=== PATIENT | female | born 1990 | race Caucasian/White ===

== ENCOUNTER 2019-01-19 12:38 | Emergency (ER) | payer OTHER ==
[~2019-01-19] VITALS: Ht 162.6 cm; Wt 80.0 kg
[2019-01-19 12:44] VITALS: BP 112/80; PULSE 78; RESP 16; Ht 162.6 cm; Wt 80.0 kg
[2019-01-19] MEDS ORDERED: NPH10OT RIGHT EAR (13:22)
--- NOTE | 2019-01-19 15:20 | ERD ---
ER Documentation Chief Complaint Chief Complaint RT EAR PAIN X 2 DAYS HPI Patient is a 28-year-old female with no medical problems who presents with right-sided ear pain. She says "I feel a buzzing in my right ear". She said that it started last night. She thinks that she might have a year infection and says that she gets these every 6 months. She does not know the name of her primary doctor currently. She has had no treatment as of yet. ROS All systems reviewed and are negative except as per history of present illness. Medications Home Meds Active Scripts Neomycin/Polymyxin/Hydrocort* (Cortisporin* Otic) 10 Ml Susp, 4 DROP RIGHT EAR QID for 7 Days, EA Prov:DEREK LONDON MD 01/19/19 Allergies Allergies: Coded Allergies: No Known Drug Allergies (Verified Allergy, Unknown, 01/19/19) PMhx/Soc Medical and Surgical Hx: pt denies Medical Hx Hx Alcohol Use: No Hx Substance Use: No Hx Tobacco Use: No FmHx Family History: No diabetes Physical Exam Vitals Vital Signs Date Temp Pulse Resp B/P (MAP) Pulse Ox O2 O2 Flow FiO2 Time Delivery Rate 01/19/19 97.2 78 16 112/80 97 12:44 (91) Physical Exam Const: No acute distress Head: Atraumatic Eyes: Normal Conjunctiva ENT: Normal External Ears, Nose and Mouth. Normal tympanic membranes bilaterally with mild erythema to the right ear canal Neck: Full range of motion. No meningismus. Resp: Clear to auscultation bilaterally Cardio: Regular rate and rhythm, no murmurs Abd: Soft, non tender, non distended. Normal bowel sounds Skin: No petechiae or rashes Back: No midline or flank tenderness Ext: No cyanosis, or edema Neur: Awake and alert Psych: Normal Mood and Affect Procedures/MDM Patient is a 28-year-old female who presents with right-sided ear pain. There is no sign of acute otitis media at this time. The patient will be given Cortisporin otic drops for symptom medic relief. The patient was to follow-up closely with a primary doctor within 1 week. The patient can return for any worsening symptoms. Departure Diagnosis: Primary Impression: Right ear pain Condition: Fair Patient Instructions: Earache W/O Infection (Adult) Referrals: Your doctor Additional Instructions: Call your primary care doctor TOMORROW for an appointment during the next 1 WEEK.Tell the pile driver operator that you were referred from this facility.See the doctor sooner or return here if your condition worsens before your appointment time. DEREK LONDON MD Jan 19, 2019 15:20
== END 2019-01-19 14:17 | disposition home or self-care (01) ==
LOC: FTE 12:38
DX: H92.01 Otalgia, right ear (principal)
CPT/HCPCS: 99282